=== PATIENT | male | born 1950 | race Caucasian/White ===

== ENCOUNTER → 2017-10-20 10:58 | Outpatient (CLI) | payer MEDICARE, BC | END | disposition home or self-care (01) | LOC: D.US 10:58 | DX: I71.4 Abdominal aortic aneurysm, without rupture (principal) ==

== ENCOUNTER → 2018-04-20 07:53 | Outpatient (CLI) | payer MEDICARE, BC | END | disposition home or self-care (01) | LOC: D.US 07:53 | DX: I71.4 Abdominal aortic aneurysm, without rupture (principal) ==

== ENCOUNTER → 2018-12-31 09:31 | Outpatient (CLI) | payer MEDICARE, BC | END | disposition home or self-care (01) | LOC: D.US 09:31 | PROVIDERS: ATTEND Internal Medicine Nephrology | DX: N18.9 Chronic kidney disease, unspecified (principal); I71.4 Abdominal aortic aneurysm, without rupture ==

== ENCOUNTER → 2019-01-22 10:29 | Outpatient (CLI) | payer MEDICARE, BC | END | disposition home or self-care (01) | LOC: D.CT 01-18 08:00 | PROVIDERS: ATTEND Thoracic Surgery (Cardiothoracic Vascular Surgery) | DX: I71.4 Abdominal aortic aneurysm, without rupture (principal) ==

== ENCOUNTER → 2019-01-29 06:36 | Outpatient (CLI) | payer MEDICARE, BC ==
--- NOTE | 2019-02-05 13:26 | EC ---
PATIENT:RYLEE ANG DATE OF SERVICE: 01/29/19 SEX: M MEDICAL RECORD: [id number] DATE OF : 46 LOCATION:D.US AGE OF PATIENT: 68 ADMISSION DATE: 01/29/19 REFERRING PHYSICIAN: INTERPRETING PHYSICIAN: COURTNEY PARKINSON MD ECHOCARDIOGRAM REPORT ECHO CHARGES 4 ECHO COMPLETE Date: 01/29/19 CLINICAL DIAGNOSIS: H/O STROKE ECHOCARDIOGRAPHIC MEASUREMENTS (adult normal given) AC root (d.<3.7cm) 3.1 cm LV Septum d (<1.2 cm> 1.3 cm Valve Excursion 1.1 cm LV Septum (systole) 2.2 cm Left Atria (s.<4.0cm> 2.6 cm LVPW d(<1.2cm) 1.4 cm RV (d.<2.3cm) 2.3 cm LVPW (sytole) 1.7 cm LV diastole(<5.6CM) 6.0 cm MV E-F(>70mm/sec) cm LV systole 4.0 cm LVOT Diameter 1.7 cm MV exc.(>10mm) cm Est.ejection fraction (50-75%) % DOPPLER: LVIT cm/sec A 58.0 cm/sec E 85.0 cm/sec LA cm/sec RVSP 34.0 mmHg LVOT 104 cm/sec AOP1/2T m/s Asc. Ao 192 cm/sec RVOT 65.0 cm/sec RA cm/sec PA 124 cm/sec AV Gradient Peak 15.0 mmHg AV Mean 7.7 mmHg AV Area 1.1 cm MV Gradient Peak 5.5 mmHg MV Mean 1.9 mmHg MV Area cm COMMENTS: Green Chain Puller: Angelita BERMANOE Import Export Clerk: 3 Dr. Can TAPE# PACS Pericardial Effusion N DATE OF SERVICE: Adequate 2D, color flow imaging, spectral Doppler, and M-Mode. Borderline LVH. LV internal dimension is normal. Wall motion is normal. EF is greater than or equal to 55%. Aortic valve sclerosis without stenosis by Doppler interrogation. Left atrium is normal at 2.6 cm. Mitral valve shows no prolapse. Trace MR. Right-sided chambers are grossly normal. Trace TR. TRANSINT:[id number] Voice Confirmation ID: [id number] DOCUMENT ID: [id number] ECHOCARDIOGRAM REPORT [id number] RYLEE ANG GREGORY A MD at 1326 CC: [id number] DICTATION DATE: 01/30/19 1243 TAX AUDITOR: 01/30/19 1327 DEP CLI 01/29/19 [facility] [address] [place] [address]
== END | disposition home or self-care (01) ==
LOC: D.US 06:36 → D.ECHO 10:05
PROVIDERS: ATTEND Thoracic Surgery (Cardiothoracic Vascular Surgery)
DX: I65.23 Occlusion and stenosis of bilateral carotid arteries (principal)

== ENCOUNTER 2019-02-12 05:00 | Inpatient (IN) | payer MEDICARE, BC ==
[2019-02-07 14:32] LABS: ALBUMIN 3.7 g/dL (3.4-5.0); BILIRUBIN - TOTAL 0.26 mg/dL (0.2-1.3); CREATININE - SERUM 1.6 mg/dL (0.6-1.3); PROTEIN - SERUM 7.9 g/dL (6.4-8.2)
[2019-02-07 14:53] LABS: APTT 29.6 SECONDS (22.8-39.4); INR 1.05 (0.85-1.17); PROTIME 13.2 SECONDS (11.6-15.0)
[2019-02-07 15:05] LABS: APPEARANCE CLEAR (CLEAR); BILIRUBIN NEGATIVE (NEGATIVE); COLOR YELLOW (YELLOW); GLUCOSE NEGATIVE (NEGATIVE); KETONE NEGATIVE (NEGATIVE); NITRITE NEGATIVE (NEGATIVE); PROTEIN NEGATIVE (NEGATIVE); UROBILINOGEN NORMAL (NORMAL)
[2019-02-07 15:11] LABS: BASOPHILS 0.4 % (0-2); EOSINOPHILS 4.9 % (0-7); HEMATOCRIT 46.2 % (42.0-54.0); HEMOGLOBIN 15.5 g/dL (13.5-17.5); IMMATURE GRANULOCYTES 0.6 % (0-5); LYMPHOCYTES 22.4 % (15-50); MCH 31.2 pg (26.0-34.0); MCHC 33.5 g/dL (31.0-37.0); MEAN PLATELET VOLUME 9.9 fL (7.4-10.4); MONOCYTES 8.3 % (2-11); NEUTROPHILS 63.4 % (40-80); PLATELET COUNT 311 10x3/uL (130-400); RBC 4.97 10x6/uL (4.20-6.10); RDW 14.5 % (11.5-14.5); WBC 8.9 10x3/uL (4.8-10.8)
[2019-02-12] VITALS (25 sets, daily range): BP systolic 115–177; BP diastolic 53–84; BMI 28.0
[~2019-02-12 05:00] MED LIST: ANORO ELLIPTA1 EACH INH; BAYER CHEWABLE81 MG PO; CARDURA1 MG PO; CO Q-10200 MG PO; FISH OIL 1,0001 CA1 PO; NORVASC5 MG PO; PRAVACHOL20 MG PO
--- NOTE | 2019-02-12 10:18 | NUR ---
REC'D VIA BED FROM OR S/P AAA STENT REPAIR. DROOWSY BUT OPENS EYES & FOLLOWS REQUEST.
--- NOTE | 2019-02-12 10:43 | NUR ---
TIRTRATING NTG GTT BY 5MCG Q 5 MIN TO KEEP SBP 90-140. SEE IV FLOWSHEETS.
--- NOTE | 2019-02-12 11:00 | NUR ---
COMPLETE ASSESS DONE. STILL DROWSY
--- NOTE | 2019-02-12 13:30 | NUR ---
NTG TITRATED OFF OVER LAST 60 MIN.
--- NOTE | 2019-02-12 15:00 | NUR ---
REASSESSED W/O CHANGES. DENIES PAIN OR DISCOMFORT AT THIS TIME.
--- NOTE | 2019-02-12 15:53 | OP ---
PATIENT NAME: RYLEE ANG MEDICAL RECORD: [id number] :46 LOCATION:DPaulCVI GinetteCV05 ADMISSION DATE:02/12/19 SURGEON: JOSE R DEAN MD DATE OF OPERATION: 02/12/2019 SURGEON: Jose R Dean MD GIRL FRIDAY: LAURO Damon MD and Ever Melton. OPERATION PERFORMED: 1. Insertion of bifurcated endovascular aortic graft. 2. Insertion of suprarenal extension. 3. Insertion of left iliac extension. 4. Aortic angioplasty. 5. Left iliac angioplasty. 6. Aortogram times 3. 7. Left iliac angiogram times 2. 8. Femoral exposure. OPERATIVE INDICATION AND PREOPERATIVE DIAGNOSIS: Abdominal aortic aneurysm. POSTOPERATIVE DIAGNOSIS: Abdominal aortic aneurysm. ANESTHESIA: General endotracheal anesthesia. ESTIMATED BLOOD LOSS: 100 cc. COMPLICATIONS: None. SPECIMENS: None. CONDITION: Stable. DISPOSITION: ICU. OPERATIVE FINDINGS: 1. Good position with no evidence of endoleak after repair and left iliac extension placed to the bifurcation of the common iliac. 2. No obstruction at the left femoral percutaneous closure site by iliac angiogram. OPERATIVE INDICATION: Abdominal aortic aneurysm. DESCRIPTION OF PROCEDURE: The patient was brought to the operating suite. General anesthesia was obtained, the patient was prepped and draped. Bilateral common femoral arteries were accessed using micropuncture technique and ultrasound access. On the left, 1cm incision was made. Anterior wall of the artery was exposed. Wire was placed and a 6-Turkmen sheath was placed on the right side. A 7-Turkmen sheath was placed after spreading down to expose the anterior wall of artery. On the left side, wire exchange was used to predeploy two ProGlide systems and then an 8 sheath was used on the left. Exchange catheter was used to place the stiff wire on the left. On the right, the snare catheter and the snare were placed. Then on the left, the AFX introducer system was placed, main body was brought through the system. The contralateral wire was snared and brought out through the right groin. The bifurcated main body OPERATIVE REPORT [id number] RYLEE ANG was then placed into the appropriate position. The main body was deployed. The right limb of the graft was deployed. Pigtail catheter was used to free the right limb wire and the pigtail was placed in the appropriate position. The left limb was then deployed and the main body was carefully placed back up into the aorta. The 34 x 100 suprarenal graft was placed over the stiff wire and into position. An aortogram was performed for positioning of the renals and then the graft was deployed without difficulty. A 28 x 45 Ovation left iliac extension was sized by performing an angiogram after the pigtail had been reformed and brought within the lumen and the completion angiogram was normal for the main body. On the left, the Ovation limb was deployed ending just at the common iliac bifurcation and the completion angiogram revealed no endoleak. The left wire was exchanged for a soft wire using the Coda balloon and left iliac angioplasty and distal aortic angioplasty were performed. The left-sided ProGlides were used to close the percutaneous system with no apparent complication and a completion iliac angiogram revealed good flow with no obstruction. Guidewire was used to remove the balloon on the right. Then, an 8-Turkmen Angio-Seal was used at the right groin, again with no apparent complication. A total of 10,000, then an extra 2000 of heparin had been given after placement of the sheaths bilaterally with activated clotting time greater than 240 and this was fully reversed with no apparent complications, Doppler pedal pulses and the anesthesia reversed. The patient was taken to CV ICU in stable condition. TRANSINT:[id number] Voice Confirmation ID: [id number] DOCUMENT ID: [id number] JOSE R DEAN MD at 1553 CC: TYESHA BOWEN MD [id number] DICTATION DATE: 02/12/19 1201 ETHICS MANAGER: 02/12/19 1348 ADM IN [place] [address] [place] [address]
--- NOTE | 2019-02-12 17:15 | NUR ---
SBP 160s- NTG RESTARTED.
--- NOTE | 2019-02-12 17:30 | NUR ---
HYDRALAZINE GIVEN FOR SBP 160s. TITRATING NTG. DENIES PAIN.
--- NOTE | 2019-02-12 19:00 | NUR ---
SHIFT ASSESSMENT COMPLETE. PT IS A&O X4 WITH NO COMPLAINTS OF PAIN OR DISCOMFORT AT THIS TIME. HE HAS A FLUSHED APPERANCE, TEMP 37.8 C VIA CRITICORE CEDENO CATH. REMOVED BLANKETS. PERRLA, 3 MM, BRISK REACTION TO LIGHT. RR EVEN AND UNLAORED, NC ON @ 2.5 L/MIN, DIMINISHED LUNG SOUNDS HEARD BILAT THROUGHOUT ALL LOBES. S1S2 AUDIBLE, HR 87 NSR SHOWING ON MONITOR. R IJ CVL INFUSING NS @ KVO. R AC PIV S/L, SWAB CAP IN PLACE. R RADIAL A-LINE NOTED WITH WRIST PROTECTOR, PT HAS GOOD SENSATION IN EXT, ZEROED, BP 122/55, GOOD WAVE FORM. ABD ROUND, BS ACTIVE X4. ASSISTED PT OFF BED SOLARES, NO STOOL NOTED, HE IS PASSING GAS. CRITICORE CEDENO INTACT DRAINING CHANG URINE. B/L GROIN DRESSINGS CDI, NO S/S OF HEMATOMA FORMATION. PEDAL PULSES PALP. IS USE X5 WITH GOOD EFFORT, 500 ML PULLED. EDUCATED PT ON THE IMPORTANCE OF IS. HE STATED HE UNDERSTOOD. PT LYING FLAT ON HIS BACK. INFORMED HIM THAT HE COULD MOVE AROUND 2230 IN REFERENCE TO THE PROCEDURE THAT WAS DONE TODAY. HE HAS NO FURTHER QUESTIONS AT THIS TIME. VSS. BED ALARM ON, WILL CONT CLOSE MONTIORING IN CVICU.
--- NOTE | 2019-02-12 21:00 | NUR ---
PT'S CALLED, UPDATE PROVIDED. HE WOKE UP IN A PANIC AND TRIED TO GET OOB TO GO TO THE RESTROOM. REORIENTED HIM, HE IS LYING FLAT ON HIS BACK AT THIS TIME. BED SOLARES PROVIDED, GAS ONLY. PO MEDS GIVEN WITHOUT DIFFICULTY. VSS. WILL CONT TO MONITOR.
--- NOTE | 2019-02-12 23:00 | NUR ---
REASSESSMENT COMPLETE. NO CHANGES IN PT CONDITION. REPOSTIIONED FOR COMFORT. HE IS IN GOOD SPIRITS, A&O X4. SEE FLOWSHEET FOR FURTHER DETIALS. RIGHT AND LEFT GROIN DRESSINGS CDI, NO S/S OF HEMATOMA FORMATION. CALL LIGHT IN REACH, BED IN LOWEST POSITION. WILL CONT WITH POC.
[2019-02-13] VITALS (61 sets, daily range): BP systolic 102–168; BP diastolic 50–475; BMI 26.4
--- NOTE | 2019-02-13 | NUR ---
PT'S BP 158/64, INITATED NITRO GTT PER ORDERS. SEE IV FLOWSHEET FOR TITRATION DETIALS. WILL CONT TO MONTIOR CLOSELY.
--- NOTE | 2019-02-13 00:54 | NUR ---
PT ANXIOUS AND TRYING TO GET OOB TO USE RESTROOM, BED SOLARES PROVIDED. LARGE SEMISOLID BM NOTED. SBP STARTING TO TREND DOWN.
--- NOTE | 2019-02-13 01:00 | NUR ---
COMPLETE LINEN CHANGE AND CHG BATH PROVIDED. PT TOLERATED WELL. CONT TO TITRATE NITRO GTT. SEE IV FLOWSHEET FOR FURTHER DETAILS. WILL CONT WITH POC.
--- NOTE | 2019-02-13 03:00 | NUR ---
REASSESSMENT COMPLETE PER FLOWSHEET. NO CHANGES IN PT CONDITION. CONT TO TITRATE NITRO GTT. VSS. CALL LIGHT IN REACH, BED IN LOWEST POSITION. WILL CONT WITH POC.
--- NOTE | 2019-02-13 05:00 | NUR ---
SPOKE WITH DR. SAMANIEGO IN REFERENCE TO NITRO GTT. VSS. CONT TO TITRATE GTT PER PARAMETERS. WILL CONT WITH POC.
--- NOTE | 2019-02-13 05:15 | NUR ---
TITRATED NITRO GTT OFF. SBP WNL.
[2019-02-13 06:43] LABS: ANION GAP 14.4 mmol/L (8-16); CALCIUM 8.3 mg/dL (8.5-10.1); CREATININE - SERUM 1.8 mg/dL (0.6-1.3); POTASSIUM - SERUM 4.4 mmol/L (3.5-5.1)
--- NOTE | 2019-02-13 06:45 | NUR ---
ASSISTED PT TO CHAIR X1 ASSIST, GAIT STEADY. PT TOLERATED WELL.
--- NOTE | 2019-02-13 07:00 | NUR ---
CVL DRESSING CHANGE VIA ARTIFICIAL MARBLE WORKER. DATED AND LABELED.
[2019-02-13 07:11] LABS: HEMATOCRIT 39.2 % (42.0-54.0); HEMOGLOBIN 13.1 g/dL (13.5-17.5); MCH 30.8 pg (26.0-34.0); MCHC 33.4 g/dL (31.0-37.0); MEAN PLATELET VOLUME 9.4 fL (7.4-10.4); RBC 4.26 10x6/uL (4.20-6.10); RDW 14.3 % (11.5-14.5); WBC 20.2 10x3/uL (4.8-10.8)
--- NOTE | 2019-02-13 08:13 | NUR ---
pt up in chair. breakfast tray served. PT DENIES PROBLEMS.
[2019-02-13] MEDS ORDERED: HYDROCODON-ACE1 EAC7 PO (11:18)
[2019-02-13] MEDS ORDERED: LOPRESSOR25 MG PO (11:58)
[2019-02-13] MEDS ORDERED: ASPIRIN EC81 M1 PO (11:59)
--- NOTE | 2019-02-13 12:19 | MORECARE ---
CASE MANAGEMENT DISCHARGE SUMMARY PATIENT: RYLEE ANG UNIT: [id number] ADM DATE: 02/12/19 AGE: 68 : 48 SEX: M ROOM/BED: [facility] AUTHOR: NICKIE ALEJANDRE PHYSICIAN: REFERRING PHYSICIAN: СВЕТЛАНА DEAN MD DATE OF SERVICE: 02/13/19 Discharge Plan Patient Name: RYLEE ANG Facility: [facility]:[place] : 1950 Planned Disposition: Home Anticipated Discharge Date: Discharge Date: Expected LOS: Initial Reviewer: [email or web address] Initial Review Date: 02/12/2019 Generated: 02/13/19 1:19 pm DCPIA - Discharge Planning Initial Assessment Updated by [email or web address]: Dimple Draper on 02/13/19 12:18 pm * How many steps to enter\exit or inside your home? * PCP Dr. Herlinda Vizcarra * Pharmacy [facility] * Preadmission Environment Home with Family * ADLs Independent * Equipment CPAP * Other Equipment HOME CONCENTRATER * Verbal permission to speak to the caregivers and representatives has been obtained from the patient. Yes * Community resources currently utilized None * Additional services required to return to the preadmission environment? No * Can the patient safely return to the preadmission environment? Yes * Has this patient been hospitalized within the prior 30 days at any hospital? No Patient Name: RYLEE ANG Page [phone] at 1219 All edits/amendments must be made on the electronic document DICTATION DATE: 02/13/19 1219 POTLINE MONITOR: EMMANUEL 02/13/19 1219 RPT#: [id number] DC DATE: STATUS: ADM IN [address] [address] END OF REPORT
--- NOTE | 2019-02-13 12:28 | MORECARE ---
CASE MANAGEMENT DISCHARGE SUMMARY PATIENT: RYLEE ANG UNIT: [id number] ADM DATE: 02/12/19 AGE: 68 : 48 SEX: M ROOM/BED: [facility] AUTHOR: PILI,DOC PHYSICIAN: REFERRING PHYSICIAN: СВЕТЛАНА DEAN MD DATE OF SERVICE: 02/13/19 Discharge Plan Patient Name: RYLEE ANG Facility: [facility]:[place] : 1950 Planned Disposition: Home Anticipated Discharge Date: Discharge Date: Expected LOS: Initial Reviewer: [email or web address] Initial Review Date: 02/12/2019 Generated: 02/13/19 1:27 pm Comments DCP- Discharge Planning Updated by [email or web address]: Dimple Draper on 02/13/19 11:[address] Patient Name: RYLEE ANG Admission Status: Urgent Accout number: [id number] Admission Date: 02-12-2019 : 1950 Admission Diagnosis: Attending: СВЕТЛАНА DEAN Current LOS: 1 Anticipated DC Date: Planned Disposition: Home Primary Insurance: MEDICARE A & B Discharge Planning Comments: CM met with patient after explaining CM role and obtaining verbal consent to discuss discharge planning needs. Patient states he lives at home with his . Patient plans to return there upon discharge. Patient states he has CPAP at home and home 02 that he uses at night. Patient states that he doesn't use any community resources or home health services. Patient denies any discharge needs at this time. CM will continue to follow and assist as needed with discharge planning/ needs. Returned Goods Repairer: Dimple Draper DCPIA - Discharge Planning Initial Assessment Updated by [email or web address]: Dimple Draper on 02/13/19 12:18 pm * How many steps to enter\exit or inside your home? * PCP Dr. Herlinda Vizcarra * Pharmacy [facility] * Preadmission Environment Home with Family * ADLs Independent * Equipment CPAP * Other Equipment HOME CONCENTRATER * Verbal permission to speak to the caregivers and representatives has been obtained from the patient. Yes * Community resources currently utilized None * Additional services required to return to the preadmission environment? No * Can the patient safely return to the preadmission environment? Yes * Has this patient been hospitalized within the prior 30 days at any hospital? No Last DP export: 02/13/19 11:19 am Patient Name: RYLEE ANG Page [phone] at 1228 All edits/amendments must be made on the electronic document DICTATION DATE: 02/13/191226 MARKET SURVEY REPRESENTATIVE: EMMANUEL 02/13/191226 RPT#: [id number] DC DATE: STATUS: ADM IN [address] [place] [address] END OF REPORT
--- NOTE | 2019-02-13 14:42 | NUR ---
PT C/O FLANK PAIN, CT ABD DONE. DR DEAN HERE AT BS SPEAKING TO PT AND PTS . PT NOT BEING DC TODAY. DR TUBBS CONSULTED.
--- NOTE | 2019-02-13 16:12 | OP ---
PATIENT NAME: RYLEE ANG MEDICAL RECORD: [id number] :46 LOCATION:RIRI Peng05 ADMISSION DATE:02/12/19 SURGEON: СВЕЛТАНА DEAN MD DATE OF OPERATION: 02/12/2019 ADDENDUM As follows; Dr. Damon was the assistant printer floor covering surgeon for this surgery. The use of an assistant printer floor covering surgeon was necessary due to bilateral femoral artery cannulation and consisted of grasping the contralateral wire with a snare, deploying the contralateral limb, and additional intraoperative surgical assistance. TRANSINT:[id number] Voice Confirmation ID: [id number] DOCUMENT ID: [id number] СВЕТЛАНА DEAN MD at 1612 CC: [id number] DICTATION DATE: 02/13/19 1108 ORDER PULLER: 02/13/19 1547 ADM IN [place] [id number] [place] [id number]
--- NOTE | 2019-02-13 19:00 | NUR ---
SHIFT ASSESSMENT COMPLETE. PT IS A&O X4 WITH NO COMPLAINTS OF PAIN OR DISCOMFORT AT THIS TIME. HE IS STANDING OUT OF BED, GAIT IS STEADY. REMINDED HIM OF THE EQUIPMENT ATTACHED TO HIM. ASSISTED BACK TO BED. S1S2 AUDIBLE, HR 109, SINUS TACH SHOWING ON MONITOR. RR SHALLOW, DIMINISHED LUNG SOUNDS HEARD BILAT THROUGHOUT ALL LOBES. ABD ROUND, NON TENDER TO TOUCH, BS ACTIVE X4. R RADIAL DRESSING CDI. R JUGULAR CVL INFUSING PLASMALYTE @ 75 ML/HR. B/L GROIN SITES CDI, NO S/S HEMATOMA FORMATION. RADIAL AND PEDAL PULSES PALP. CALL LIGHT IN REACH, BED IN LOWEST POSITION, BED ALARM ON. HE DENIES ANY NEEDS AT THIS TIME. WILL CONT CLOSE MONITORING IN ICU.
--- NOTE | 2019-02-13 21:00 | NUR ---
FAMILY AT BEDSIDE. UPDATE GIVEN. NO FURTHER QUESTIONS. PO MEDS GIVEN WITHOUT DIFFICULTY. R JUGULAR CVL DRESSING CHANGE PROVIDED VIA AVIATION MECHANIC. OLD DRESSING WAS FALLING OFF. PT TOLERATED WELL. NO FURTHER NEEDS.
--- NOTE | 2019-02-13 23:00 | NUR ---
PT IS WHEEZING AND SOB. 3 L/MIN PLACED ON PT. PAUSED IVF. ASKED PT TO SELF CATH, HE REFUSED AND STATED THAT IT IS NOT IN HIS ROUTINE. UPDATED HIM ON THE CHANGES IN HIS CONDITION AND HE STILL REFUSED. WILL CONT TO MONITOR CLOSELY FOR ANY FURTHER CHANGES.
--- NOTE | 2019-02-13 23:15 | NUR ---
PT AGREED TO SELF CATH. APPROX 680 ML CLEAR YELLOW URINE COLLECTED. PT RR EVEN AND UNLABORED, NO WHEEZES HEARD AT THIS TIME. VSS. WILL CONT CLOSE MONITORING IN CVICU.
[2019-02-14] VITALS (10 sets, daily range): BP systolic 113–153; BP diastolic 63–81
--- NOTE | 2019-02-14 01:00 | NUR ---
PT RESTING PEACEFULLY WITH NO SIGNS OF ACUTE DISTRESS NOTED. VSS. CALL LIGHT IN REACH, BED ALARM ON.
--- NOTE | 2019-02-14 03:00 | NUR ---
REASSESSMENT COMPLETE. PT WHEEZEING AT THIS TIME. ASSISTED TO BATHROOM, SCANT AMOUNT OF URINE NOTED. PT BACK IN BED, IS USE X5, GOOD EFFORT 500-1000 ML INSPIRED. ENCOURAGED COUGHING AND DEEP BREATHING. PT IS CLEARING UP AT THIS TIME. WILL CONT CLOSE MONITORING.
--- NOTE | 2019-02-14 05:00 | NUR ---
SPOKE WITH DR. TUBBS. NEW ORDERS RECIEVED. PT RESTING PEACEFULLY. VSS.
[2019-02-14 06:02] LABS: BASOPHILS 0.1 % (0-2); EOSINOPHILS 0.1 % (0-7); HEMATOCRIT 39.5 % (42.0-54.0); HEMOGLOBIN 13.4 g/dL (13.5-17.5); IMMATURE GRANULOCYTES 0.4 % (0-5); LYMPHOCYTES 6.5 % (15-50); MCH 30.9 pg (26.0-34.0); MCHC 33.9 g/dL (31.0-37.0); MEAN PLATELET VOLUME 9.5 fL (7.4-10.4); MONOCYTES 7.7 % (2-11); NEUTROPHILS 85.2 % (40-80); RBC 4.34 10x6/uL (4.20-6.10); RDW 14.2 % (11.5-14.5); WBC 18.7 10x3/uL (4.8-10.8)
[2019-02-14 06:03] LABS: PLATELET COUNT 197 10x3/uL (130-400)
--- NOTE | 2019-02-14 09:37 | NUR ---
0700 PT RECIEVED IN BED ALERT AN DORIENTED O2 REMOVED PT STATES HE WEARS IT TO SLEEP AT HOME, R IJ CVL DRESSING CDI, SL, BILAT GROIN SITES CDI, TRANSFERRED SELF TO CHAIR, ATE BREAKFAST 0900 ASSISTED BACK TO BED AND R IJ CORDIS DCD PER PROTOCOL, NO SIGNS OF BLEEDING, LUE PIV DCD TIP INTACT 0940 DR JOHNSON NURSE THERESA DISCUSSED DC WITH PT AND , REMOVED GROIN DRESSINGS
--- NOTE | 2019-02-14 09:58 | NUR ---
PT DCD [id number] DENIES ALL QUESTIONS
--- NOTE | 2019-02-14 12:52 | MORECARE ---
CASE MANAGEMENT DISCHARGE SUMMARY PATIENT: RYLEE ANG UNIT: [id number] ADM DATE: 02/12/19 AGE: 68 : 48 SEX: M ROOM/BED: [facility] AUTHOR: PILI,DOC PHYSICIAN: REFERRING PHYSICIAN: СВЕТЛАНА DEAN MD DATE OF SERVICE: 02/14/19 Discharge Plan Patient Name: RYLEE ANG Facility: [facility]:[place] : 1950 Planned Disposition: Home Anticipated Discharge Date: Discharge Date: 02/14/2019 Expected LOS: Initial Reviewer: [email or web address] Initial Review Date: 02/12/2019 Generated: 02/14/19 1:52 pm Comments DCP- Discharge Planning Updated by [email or web address]: Dimple Draper on 02/13/19 11:[address] Patient Name: RYLEE ANG Admission Status: Urgent Accout number: [id number] Admission Date: 02-12-2019 : 1950 Admission Diagnosis: Attending: СВЕТЛАНА DEAN Current LOS: 1 Anticipated DC Date: Planned Disposition: Home Primary Insurance: MEDICARE A & B Discharge Planning Comments: CM met with patient after explaining CM role and obtaining verbal consent to discuss discharge planning needs. Patient states he lives at home with his . Patient plans to return there upon discharge. Patient states he has CPAP at home and home 02 that he uses at night. Patient states that he doesn't use any community resources or home health services. Patient denies any discharge needs at this time. CM will continue to follow and assist as needed with discharge planning/ needs. Lifts And Cranes Inspector: Dimple Draper DCPIA - Discharge Planning Initial Assessment Updated by [email or web address]: Dimple Draper on 02/13/19 12:18 pm * How many steps to enter\exit or inside your home? * PCP Dr. Herlinda Vizcarra * Pharmacy [facility] * Preadmission Environment Home with Family * ADLs Independent * Equipment CPAP * Other Equipment HOME CONCENTRATER * Verbal permission to speak to the caregivers and representatives has been obtained from the patient. Yes * Community resources currently utilized None * Additional services required to return to the preadmission environment? No * Can the patient safely return to the preadmission environment? Yes * Has this patient been hospitalized within the prior 30 days at any hospital? No Last DP export: 02/13/19 11:27 am Patient Name: RYLEE ANG Page [phone] at 1252 All edits/amendments must be made on the electronic document DICTATION DATE: 02/14/19 1252 ASSISTANT SPA DIRECTOR: EMMANUEL 02/14/19 1252 RPT#: [id number] DC DATE:02/14/19 STATUS: DIS IN [facility] [address] [place] [address] END OF REPORT
== END 2019-02-14 10:09 | disposition home or self-care (01) | DRG 269 ==
LOC: D.CVICU 05:00 → D.SDCHOLD 05:00 → D.CVICU 08:34
PROVIDERS: Surgery; ADMIT Thoracic Surgery (Cardiothoracic Vascular Surgery); ATTEND Thoracic Surgery (Cardiothoracic Vascular Surgery)
PROC: 04703ZZ Dilation of Abdominal Aorta, Percutaneous Approach (ICD-10-PCS; 2019-02-12)
PROC: 047D3ZZ Dilation of Left Common Iliac Artery, Percutaneous Approach (ICD-10-PCS; 2019-02-12)
PROC: 04V03DZ Restriction of Abdominal Aorta with Intraluminal Device, Percutaneous Approach (ICD-10-PCS; principal; 2019-02-12 07:30)
DX: I71.4 Abdominal aortic aneurysm, without rupture (principal); D72.829 Elevated white blood cell count, unspecified; K52.9 Noninfective gastroenteritis and colitis, unspecified; I10 Essential (primary) hypertension; F17.200 Nicotine dependence, unspecified, uncomplicated

== ENCOUNTER 2019-02-15 15:22 | Emergency (ER) | payer MEDICARE, BC ==
[~2019-02-15 15:22] MED LIST changes: +ASPIRIN EC81 M1 PO; +HYDROCODON-ACE1 EAC7 PO; +LOPRESSOR25 MG PO
[2019-02-15 15:35] VITALS: BMI 27.4
[2019-02-15 17:13] LABS: BASOPHILS 0.2 % (0-2); EOSINOPHILS 2.9 % (0-7); HEMATOCRIT 39.3 % (42.0-54.0); HEMOGLOBIN 13.3 g/dL (13.5-17.5); IMMATURE GRANULOCYTES 0.6 % (0-5); LYMPHOCYTES 12.5 % (15-50); MCH 30.8 pg (26.0-34.0); MCHC 33.8 g/dL (31.0-37.0); MEAN PLATELET VOLUME 9.8 fL (7.4-10.4); MONOCYTES 8.5 % (2-11); NEUTROPHILS 75.3 % (40-80); PLATELET COUNT 200 10x3/uL (130-400); RBC 4.32 10x6/uL (4.20-6.10); RDW 14.1 % (11.5-14.5)
[2019-02-15 17:28] LABS: ALBUMIN 3.1 g/dL (3.4-5.0); ANION GAP 12.9 mmol/L (8-16); BILIRUBIN - TOTAL 0.5 mg/dL (0.2-1.3); CALCIUM 8.9 mg/dL (8.5-10.1); CARBON DIOXIDE 25.1 mmol/L (21.0-32.0); CREATININE - SERUM 1.5 mg/dL (0.6-1.3); MAGNESIUM - SERUM 2.2 mg/dL (1.8-2.4)
[2019-02-15 17:30] LABS: WBC 12.1 10x3/uL (4.8-10.8)
[2019-02-15 18:47] VITALS: BP 141/84
== END 2019-02-15 18:27 | disposition home or self-care (01) ==
LOC: D.ER 15:22
PROVIDERS: Emergency Medicine
DX: J39.2 Other diseases of pharynx (principal); D64.9 Anemia, unspecified; E86.0 Dehydration; N28.9 Disorder of kidney and ureter, unspecified

== ENCOUNTER 2019-04-29 20:26 | Inpatient (IN) | payer MEDICARE, BC ==
[~2019-04-29] VITALS: Ht 172.7 cm; Wt 85.7 kg
[2019-04-29 21:14] LABS: BASOPHILS 0.4 % (0-2); EOSINOPHILS 1.1 % (0-7); HEMATOCRIT 43.3 % (42.0-54.0); IMMATURE GRANULOCYTES 0.9 % (0-5); LYMPHOCYTES 21.9 % (15-50); MCH 31.6 pg (26.0-34.0); MCHC 34.6 g/dL (31.0-37.0); MCV 91.4 fL (80.0-100.0); MEAN PLATELET VOLUME 9.7 fL (7.4-10.4); MONOCYTES 11.3 % (2-11); NEUTROPHILS 64.4 % (40-80); PLATELET COUNT 175 10x3/uL (130-400); RBC 4.74 10x6/uL (4.20-6.10); RDW 15.5 % (11.5-14.5); WBC 4.5 10x3/uL (4.8-10.8)
[2019-04-29 21:21] LABS: APTT 30.6 SECONDS (22.8-39.4); INR 1.1 (0.85-1.17); PROTIME 13.7 SECONDS (11.6-15.0)
[2019-04-29 21:32] LABS: APPEARANCE CLEAR (CLEAR); BILIRUBIN NEGATIVE (NEGATIVE); COLOR YELLOW (YELLOW); GLUCOSE NEGATIVE (NEGATIVE); KETONE NEGATIVE (NEGATIVE); NITRITE POSITIVE (NEGATIVE); PROTEIN NEGATIVE (NEGATIVE); SPECIFIC GRAVITY 1.015 (1.005-1.020); UROBILINOGEN NORMAL (NORMAL)
[2019-04-29 21:34] LABS: RED CELLS - URINE OCC /hpf (0-5); WHITE CELLS - URINE 0-5 /hpf (0-5)
[2019-04-29 21:35] LABS: BACTERIA MODERATE /hpf (NONE SEEN)
[2019-04-29 21:40] LABS: ALBUMIN 3.7 g/dL (3.4-5.0); ALKALINE PHOSPHATASE 105 U/L (46-116); ALT (SGPT) 22 U/L (10-68); BILIRUBIN - TOTAL 0.31 mg/dL (0.2-1.3); CALC OSMOLALITY 275 mosm/kg (275-300); CALCIUM 9.4 mg/dL (8.5-10.1); CARBON DIOXIDE 24.3 mmol/L (21.0-32.0); CHLORIDE - SERUM 103 mmol/L (98-107); CREATININE - SERUM 1.8 mg/dL (0.6-1.3); GLUCOSE 125 mg/dL (74-106); PROTEIN - SERUM 7.9 g/dL (6.4-8.2); SODIUM 136 mmol/L (136-145); TROPONIN-I < 0.017 ng/mL (0.000-0.060); UREA NITROGEN 22 mg/dL (7-18); eGFR NON AFRICAN AMERICAN 40 mL/min (90-120)
[2019-04-30 01:58] VITALS: BP 149/80; BMI 28.8
[2019-04-30 04:00] VITALS: BP 130/60
[2019-04-30 06:56] LABS: BASOPHILS 0.5 % (0-2); EOSINOPHILS 0.5 % (0-7); HEMATOCRIT 41.7 % (42.0-54.0); IMMATURE GRANULOCYTES 0.7 % (0-5); LYMPHOCYTES 27.8 % (15-50); MCH 30.6 pg (26.0-34.0); MCHC 33.6 g/dL (31.0-37.0); MCV 91.2 fL (80.0-100.0); MEAN PLATELET VOLUME 10.1 fL (7.4-10.4); MONOCYTES 12.5 % (2-11); PLATELET COUNT 173 10x3/uL (130-400); RBC 4.57 10x6/uL (4.20-6.10); RDW 15.6 % (11.5-14.5); WBC 4.1 10x3/uL (4.8-10.8)
[2019-04-30 07:22] LABS: ANION GAP 14.7 mmol/L (8-16); CALCIUM 8.4 mg/dL (8.5-10.1); CARBON DIOXIDE 22.2 mmol/L (21.0-32.0); CREATININE - SERUM 1.7 mg/dL (0.6-1.3); MAGNESIUM - SERUM 1.8 mg/dL (1.8-2.4); PHOSPHOROUS 3.4 mg/dL (2.5-4.9); POTASSIUM - SERUM 3.9 mmol/L (3.5-5.1)
[2019-04-30 08:42] VITALS: Ht 172.7 cm; Wt 85.7 kg
[2019-04-30 09:38] VITALS: BP 129/78
[2019-04-30 20:00] VITALS: BP 123/71
[2019-05-01 04:00] VITALS: BP 129/81
[2019-05-01 06:13] LABS: BASOPHILS 0.3 % (0-2); EOSINOPHILS 0.3 % (0-7); HEMATOCRIT 39.3 % (42.0-54.0); HEMOGLOBIN 13.3 g/dL (13.5-17.5); IMMATURE GRANULOCYTES 0.6 % (0-5); LYMPHOCYTES 27.4 % (15-50); MCH 30.5 pg (26.0-34.0); MCHC 33.8 g/dL (31.0-37.0); MCV 90.1 fL (80.0-100.0); MEAN PLATELET VOLUME 9.5 fL (7.4-10.4); MONOCYTES 10.9 % (2-11); NEUTROPHILS 60.5 % (40-80); PLATELET COUNT 139 10x3/uL (130-400); RBC 4.36 10x6/uL (4.20-6.10); RDW 15.2 % (11.5-14.5); WBC 3.5 10x3/uL (4.8-10.8)
[2019-05-01 06:45] LABS: ANION GAP 15.9 mmol/L (8-16); CALCIUM 8.1 mg/dL (8.5-10.1); CARBON DIOXIDE 20.1 mmol/L (21.0-32.0); CREATININE - SERUM 1.7 mg/dL (0.6-1.3); MAGNESIUM - SERUM 1.7 mg/dL (1.8-2.4); PHOSPHOROUS 3.2 mg/dL (2.5-4.9)
[2019-05-01 08:30] VITALS: BP 113/68
[2019-05-01 12:45] VITALS: BP 100/46
[2019-05-01 16:00] VITALS: BP 110/64
[2019-05-01 20:00] VITALS: BP 120/67
[2019-05-02 04:00] VITALS: BP 119/66
[2019-05-02 06:03] LABS: BASOPHILS 0.3 % (0-2); EOSINOPHILS 2.4 % (0-7); HEMATOCRIT 39.9 % (42.0-54.0); HEMOGLOBIN 13.6 g/dL (13.5-17.5); IMMATURE GRANULOCYTES 0.7 % (0-5); MCH 30.8 pg (26.0-34.0); MCHC 34.1 g/dL (31.0-37.0); MCV 90.5 fL (80.0-100.0); MEAN PLATELET VOLUME 9.9 fL (7.4-10.4); MONOCYTES 10.8 % (2-11); NEUTROPHILS 44.8 % (40-80); PLATELET COUNT 130 10x3/uL (130-400); RBC 4.41 10x6/uL (4.20-6.10); RDW 15.3 % (11.5-14.5)
[2019-05-02 06:52] LABS: ANION GAP 14.6 mmol/L (8-16); CARBON DIOXIDE 21.6 mmol/L (21.0-32.0); CREATININE - SERUM 1.6 mg/dL (0.6-1.3); MAGNESIUM - SERUM 1.8 mg/dL (1.8-2.4); PHOSPHOROUS 3.2 mg/dL (2.5-4.9); POTASSIUM - SERUM 4.2 mmol/L (3.5-5.1)
[2019-05-02 08:38] VITALS: BP 118/64
--- NOTE | 2019-05-02 09:52 | MORECARE ---
CASE MANAGEMENT DISCHARGE SUMMARY PATIENT: RYLEE ANG UNIT: [id number] ADM DATE: 04/30/19 AGE: 68 : [birth year] SEX: M ROOM/BED: D.2218 AUTHOR: NICKIE ALEJANDRE PHYSICIAN: REFERRING PHYSICIAN: GREGG FLOYD DO DATE OF SERVICE: 05/02/19 Discharge Plan Patient Name: RYLEE ANG Facility: [facility]:[place] : 1950 Planned Disposition: Home or Self Care Anticipated Discharge Date: Discharge Date: Expected LOS: Initial Reviewer: [email or web address] Initial Review Date: 04/30/2019 Generated: 05/02/19 10:52 am Comments DCP- Discharge Planning Updated by [email or web address]: Mandie Morel on 05/02/19 8:[address] Patient Name: RYLEE ANG Admission Status: ER Accout number: [id number] Admission Date: 04-30-2019 : 1950 Admission Diagnosis: Attending: GREGG FLOYD Current LOS: 2 Anticipated DC Date: Planned Disposition: Home or Self Care Primary Insurance: MEDICARE A & B Discharge Planning Comments: CM met with patient to complete initial dc planning assessment. CM educated patient on the CM role and verbal consent given by patient to complete assessment. Patient lives at home with his where he is independent with his care. At discharge patient plans to return home and feels this is a safe discharge. CM discussed availability of home health, rehab services, and medical equipment. He has a CPAP machine that he got from [employer] [facility], EDWIN signed and placed in chart. Patient denied known discharge needs at this time. 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 CM will continue to follow and will assist as needed with dc plans/needs. Supply Chain Project Manager: Mandie Morel DCPIA - Discharge Planning Initial Assessment Updated by [email or web address]: Mandie Morel on 05/02/19 9:50 am * Is the patient Alert and Oriented? Yes * How many steps to enter\exit or inside your home? * PCP TAMELA * Pharmacy ED IN [place] * Preadmission Environment Home with Family * ADLs Independent * Equipment CPAP * List name and contact numbers for known caregivers / representatives who currently or will assist patient after discharge: CLEMENTE- [phone] * Verbal permission to speak to the caregivers and representatives has been obtained from the patient. Yes * Community resources currently utilized None * Additional services required to return to the preadmission environment? No * Can the patient safely return to the preadmission environment? Yes * Has this patient been hospitalized within the prior 30 days at any hospital? No Patient Name: RYLEE ANG Page 47716 at 0952 All edits/amendments must be made on the electronic document DICTATION DATE: 05/02/19951 EMPLOYMENT OFFICER: EMMANUEL 05/02/19951 RPT#: [id number] DC DATE: STATUS: ADM IN [facility] [address] [place] [address] END OF REPORT
[2019-05-02 11:58] VITALS: BP 151/82
[2019-05-02 16:34] VITALS: BP 99/47
[2019-05-02 20:00] VITALS: BP 112/54
[2019-05-03 04:00] VITALS: BP 117/69
[2019-05-03 06:39] LABS: BASOPHILS 0.3 % (0-2); EOSINOPHILS 4.4 % (0-7); HEMOGLOBIN 13.3 g/dL (13.5-17.5); IMMATURE GRANULOCYTES 0.3 % (0-5); LYMPHOCYTES 43.5 % (15-50); MCH 30.9 pg (26.0-34.0); MCHC 34.1 g/dL (31.0-37.0); MCV 90.5 fL (80.0-100.0); MEAN PLATELET VOLUME 10.1 fL (7.4-10.4); MONOCYTES 9.8 % (2-11); NEUTROPHILS 41.7 % (40-80); PLATELET COUNT 136 10x3/uL (130-400); RBC 4.31 10x6/uL (4.20-6.10); RDW 15.4 % (11.5-14.5); WBC 3.4 10x3/uL (4.8-10.8)
[2019-05-03 06:49] LABS: ANION GAP 14.3 mmol/L (8-16); CARBON DIOXIDE 21.5 mmol/L (21.0-32.0); CREATININE - SERUM 1.4 mg/dL (0.6-1.3); MAGNESIUM - SERUM 1.8 mg/dL (1.8-2.4); POTASSIUM - SERUM 3.8 mmol/L (3.5-5.1)
--- NOTE | 2019-05-03 08:44 | MORECARE ---
CASE MANAGEMENT DISCHARGE SUMMARY PATIENT: RYLEE ANG UNIT: [id number] ADM DATE: 04/30/19 AGE: 68 : 48 SEX: M ROOM/BED: D.2218 AUTHOR: NICKIE ALEJANDRE PHYSICIAN: REFERRING PHYSICIAN: GREGG FLOYD DO DATE OF SERVICE: 05/03/19 Discharge Plan Patient Name: RYLEE ANG Facility: [facility]:[place] : 1950 Planned Disposition: Home or Self Care Anticipated Discharge Date: Discharge Date: Expected LOS: Initial Reviewer: [id number] Initial Review Date: 04/30/2019 Generated: 05/03/19 9:43 am Comments DCP- Discharge Planning Updated by [email or web address]: Mandie Morel on 05/03/19 7:[address] IMM SERVED AND EXPLAINED TO PATIENT DCP- Discharge Planning Updated by [id number]: Mandie Morel on 05/02/19 8:[address] Patient Name: RYLEE ANG Admission Status: ER Accout number: [id number] Admission Date: 04-30-2019 : 1950 Admission Diagnosis: Attending: GREGG FLOYD Current LOS: 2 Anticipated DC Date: Planned Disposition: Home or Self Care Primary Insurance: MEDICARE A & B Discharge Planning Comments: CM met with patient to complete initial dc planning assessment. CM educated patient on the CM role and verbal consent given by patient to complete assessment. Patient lives at home with his where he is independent with his care. At discharge patient plans to return home and feels this is a safe discharge. CM discussed availability of home health, rehab services, and medical equipment. He has a CPAP machine that he got from [facility], EDWIN signed and placed in chart. Patient denied known discharge needs at this time. Henrietta () will be his guard driver home. CM will continue to follow and will assist as needed with dc plans/needs. Printing Roller Polisher: Mandie Morel DCPIA - Discharge Planning Initial Assessment Updated by [id number]: Mandie Morel on 05/02/19 9:50 am * Is the patient Alert and Oriented? Yes * How many steps to enter\exit or inside your home? * PCP TAMELA * Pharmacy ED IN [place] * Preadmission Environment Home with Family * ADLs Independent * Equipment CPAP * List name and contact numbers for known caregivers / representatives who currently or will assist patient after discharge: MIKE DAS [phone] * Verbal permission to speak to the caregivers and representatives has been obtained from the patient. Yes * Community resources currently utilized None * Additional services required to return to the preadmission environment? No * Can the patient safely return to the preadmission environment? Yes * Has this patient been hospitalized within the prior 30 days at any hospital? No Coverage Notice Reviewer: [id number] Maria L Morel Notice Issued Date-Time: 05/02/2019 9:30 Notice Type: Patient Choice Letter Notice Delivered To: Patient Relationship to Patient: Section Leader And Machine Setter Name: Delivery Method: HAND - Hand Delivered Daphney Days: Prior Verbal Notification: Recipient Understood Notice: Yes Recipient Signature: Yes Med Rec Note Co-signed by Attending: Coverage Notice Comment: [facility] Reviewer: [id number] Maria L Morel Notice Issued Date-Time: 05/03/2019 8:15 Notice Type: IM Discharge Notice Notice Delivered To: Patient Relationship to Patient: Section Leader And Machine Setter Name: Delivery Method: HAND - Hand Delivered Daphney Days: Prior Verbal Notification: Recipient Understood Notice: Yes Recipient Signature: Yes Med Rec Note Co-signed by Attending: Coverage Notice Comment: Last DP export: 05/02/19 8:52 a Patient Name: RYLEE ANG Page [id number] at 0844 All edits/amendments must be made on the electronic document DICTATION DATE: 05/03/19842 SHAKER TENDER: EMMANUEL 05/03/19842 RPT#: [id number] DC DATE: STATUS: ADM IN [facility] [address] [place] [address] END OF REPORT
[2019-05-03] MEDS ORDERED: Nicoderm [PBKC] TRANSDERM (10:48)
[2019-05-03] MEDS ORDERED: OMNICEF300 MG PO (10:50)
--- NOTE | 2019-05-03 11:13 | MORECARE ---
CASE MANAGEMENT DISCHARGE SUMMARY PATIENT: RYLEE ANG UNIT: [id number] ADM DATE: 04/30/19 AGE: 68 : 48 SEX: M ROOM/BED: D.2218 AUTHOR: NICKIE ALEJANDRE PHYSICIAN: REFERRING PHYSICIAN: GREGG FLOYD DO DATE OF SERVICE: 05/03/19 Discharge Plan Patient Name: RYLEE ANG Facility: [facility]:[place] : 1950 Planned Disposition: Home or Self Care Anticipated Discharge Date: Discharge Date: Expected LOS: Initial Reviewer: [id number] Initial Review Date: 04/30/2019 Generated: 05/03/19 12:13 pm Comments DCP- Discharge Planning Updated by [email or web address]: Mandie Morel on 05/03/19 10:[address] Patient Name: RYLEE ANG Encounter No: [id number] : 1950 Primary Insurance: MEDICARE A & B Anticipated DC Date: Planned Disposition: Home or Self Care External Planned Provider: : DCP follow-up note: Patient and family in agreement with discharge plan. No changes to plan. Case management will follow and assist as needed. Mandie Morel DCP- Discharge Planning Updated by [email or web address]: Mandie Morel on 05/03/19 7:[address] IMM SERVED AND EXPLAINED TO PATIENT DCP- Discharge Planning Updated by [email or web address]: Mandie Morel on 05/02/19 8:[address] Patient Name: RYLEE ANG Admission Status: ER Accout number: [id number] Admission Date: 04-30-2019 : 1950 Admission Diagnosis: Attending: GREGG FLOYD Current LOS: 2 Anticipated DC Date: Planned Disposition: Home or Self Care Primary Insurance: MEDICARE A & B Discharge Planning Comments: CM met with patient to complete initial dc planning assessment. CM educated patient on the CM role and verbal consent given by patient to complete assessment. Patient lives at home with his where he is independent with his care. At discharge patient plans to return home and feels this is a safe discharge. CM discussed availability of home health, rehab services, and medical equipment. He has a CPAP machine that he got from [facility], EDWIN signed and placed in chart. Patient denied known discharge needs at this time. Clemente () will be his otr van cdl truck driver home. CM will continue to follow and will assist as needed with dc plans/needs. Casting Machine Operator Helper: Mandie Morel DCPIA - Discharge Planning Initial Assessment Updated by [email or web address]: Mandei Morel on 05/02/19 9:50 am * Is the patient Alert and Oriented? Yes * How many steps to enter\exit or inside your home? * PCP TAMELA * Pharmacy ED IN [place] * Preadmission Environment Home with Family * ADLs Independent * Equipment CPAP * List name and contact numbers for known caregivers / representatives who currently or will assist patient after discharge: CLEMENTE- [phone] * Verbal permission to speak to the caregivers and representatives has been obtained from the patient. Yes * Community resources currently utilized None * Additional services required to return to the preadmission environment? No * Can the patient safely return to the preadmission environment? Yes * Has this patient been hospitalized within the prior 30 days at any hospital? No Coverage Notice Reviewer: [id number] Maria L Morel Notice Issued Date-Time: 05/02/2019 9:30 Notice Type: Patient Choice Letter Notice Delivered To: Patient Relationship to Patient: Tire Manager Name: Delivery Method: HAND - Hand Delivered Daphney Days: Prior Verbal Notification: Recipient Understood Notice: Yes Recipient Signature: Yes Med Rec Note Co-signed by Attending: Coverage Notice Comment: [facility] Reviewer: [id number] Maria L Morel Notice Issued Date-Time: 05/03/2019 8:15 Notice Type: IM Discharge Notice Notice Delivered To: Patient Relationship to Patient: Tire Manager Name: Delivery Method: HAND - Hand Delivered Daphney Days: Prior Verbal Notification: Recipient Understood Notice: Yes Recipient Signature: Yes Med Rec Note Co-signed by Attending: Coverage Notice Comment: Last DP export: 05/03/19 7:44 a Patient Name: RYLEE ANG Page [id number] at 1113 All edits/amendments must be made on the electronic document DICTATION DATE: 05/03/19 1113 MIXING ENGINEER: EMMANUEL 05/03/19 1113 RPT#: [id number] DC DATE: STATUS: ADM IN [facility] [address] [place] [address] END OF REPORT
--- NOTE | 2019-05-11 12:02 | MORECARE ---
CASE MANAGEMENT DISCHARGE SUMMARY PATIENT: RYLEE ANG UNIT: [id number] ADM DATE: 04/30/19 AGE: 68 : 48 SEX: M ROOM/BED: D.2218 AUTHOR: NICKIE ALEJANDRE PHYSICIAN: REFERRING PHYSICIAN: GREGG FLOYD DO DATE OF SERVICE: 05/11/19 Discharge Plan Patient Name: RYLEE ANG Facility: [facility]:[place] : 1950 Planned Disposition: Home or Self Care Anticipated Discharge Date: Discharge Date: 05/03/2019 Expected LOS: Initial Reviewer: [id number] Initial Review Date: 04/30/2019 Generated: 05/11/19 1:01 pm Comments DCP- Discharge Planning Updated by [id number]: Mandie Morel on 05/03/19 10:[address] Patient Name: RYLEE ANG Encounter No: [id number] : 1950 Primary Insurance: MEDICARE A & B Anticipated DC Date: Planned Disposition: Home or Self Care External Planned Provider: : DCP follow-up note: Patient and family in agreement with discharge plan. No changes to plan. Case management will follow and assist as needed. Mandie Morel DCP- Discharge Planning Updated by [email or web address]: Mandie Morel on 05/03/19 7:[address] IMM SERVED AND EXPLAINED TO PATIENT DCP- Discharge Planning Updated by [id number]: Mandie Morel on 05/02/19 8:[address] Patient Name: RYLEE ANG Admission Status: ER Accout number: [id number] Admission Date: 04-30-2019 : 1950 Admission Diagnosis: Attending: GREGG FLOYD Current LOS: 2 Anticipated DC Date: Planned Disposition: Home or Self Care Primary Insurance: MEDICARE A & B Discharge Planning Comments: CM met with patient to complete initial dc planning assessment. CM educated patient on the CM role and verbal consent given by patient to complete assessment. Patient lives at home with his where he is independent with his care. At discharge patient plans to return home and feels this is a safe discharge. CM discussed availability of home health, rehab services, and medical equipment. He has a CPAP machine that he got from [facility], EDWIN signed and placed in chart. Patient denied known discharge needs at this time. Clemente () will be his sales driver home. CM will continue to follow and will assist as needed with dc plans/needs. Reciprocating Drill Operator: Mandie Morel DCPIA - Discharge Planning Initial Assessment Updated by [id number]: Mandie Morel on 05/02/19 9:50 am * Is the patient Alert and Oriented? Yes * How many steps to enter\exit or inside your home? * PCP TAMELA * Pharmacy [facility] IN [place] * Preadmission Environment Home with Family * ADLs Independent * Equipment CPAP * List name and contact numbers for known caregivers / representatives who currently or will assist patient after discharge: CLEMENTE- [phone] * Verbal permission to speak to the caregivers and representatives has been obtained from the patient. Yes * Community resources currently utilized None * Additional services required to return to the preadmission environment? No * Can the patient safely return to the preadmission environment? Yes * Has this patient been hospitalized within the prior 30 days at any hospital? No Coverage Notice Reviewer: [id number] Maria L Morel Notice Issued Date-Time: 05/02/2019 9:30 Notice Type: Patient Choice Letter Notice Delivered To: Patient Relationship to Patient: Clubhouse Manager Name: Delivery Method: HAND - Hand Delivered Daphney Days: Prior Verbal Notification: Recipient Understood Notice: Yes Recipient Signature: Yes Med Rec Note Co-signed by Attending: Coverage Notice Comment: [facility] Reviewer: [id number] Maria L Morel Notice Issued Date-Time: 05/03/2019 8:15 Notice Type: IM Discharge Notice Notice Delivered To: Patient Relationship to Patient: Clubhouse Manager Name: Delivery Method: HAND - Hand Delivered Daphney Days: Prior Verbal Notification: Recipient Understood Notice: Yes Recipient Signature: Yes Med Rec Note Co-signed by Attending: Coverage Notice Comment: Last DP export: 05/03/19 10:13 a Patient Name: RYLEE ANG Page [id number] at 1202 All edits/amendments must be made on the electronic document DICTATION DATE: 05/11/19 1201 FLATBED TRUCK DRIVER: EMMANUEL 05/11/19 1201 RPT#: [id number] DC DATE:05/03/19 STATUS: DIS IN [facility] [address] [place] [address] END OF REPORT
== END 2019-05-03 13:00 | disposition home or self-care (01) | DRG 690 ==
LOC: D.ER 20:26 → OBSVTIME 21:55 → D.MS 21:55
PROVIDERS: Family Medicine; ADMIT Family Medicine; ATTEND Family Medicine
DX: N39.0 Urinary tract infection, site not specified (principal); I13.0 Hypertensive heart and chronic kidney disease with heart failure and stage 1 through stage 4 chronic kidney disease, or unspecified chronic kidney disease; I50.30 Unspecified diastolic (congestive) heart failure; I69.351 Hemiplegia and hemiparesis following cerebral infarction affecting right dominant side; N18.9 Chronic kidney disease, unspecified; E78.5 Hyperlipidemia, unspecified; J44.9 Chronic obstructive pulmonary disease, unspecified

== ENCOUNTER → 2019-08-16 07:40 | Outpatient (CLI) | payer MEDICARE, BC ==
[2019-04-30 08:42] VITALS: BMI 28.7
[~2019-08-16 07:40] MED LIST changes: +Nicoderm [PBKC] TRANSDERM; +OMNICEF300 MG PO
== END | disposition home or self-care (01) ==
LOC: D.CT 07:40
PROVIDERS: ATTEND Internal Medicine Cardiovascular Disease
DX: I71.4 Abdominal aortic aneurysm, without rupture (principal)